=== PATIENT | female | born 1950 | race African-American/Black ===

== ENCOUNTER 2017-06-24 14:35 | Emergency (ER) | payer MEDICARE, MEDICAID | END 2017-06-24 16:23 | disposition left against medical advice (07) | LOC: ERS 14:35 | DX: Z53.21 Procedure and treatment not carried out due to patient leaving prior to being seen by health care provider (principal) ==

== ENCOUNTER 2017-08-07 12:22 | Outpatient (CLI) | payer MEDICARE, MEDICAID ==
--- NOTE | 2017-08-07 15:17 | CT ---
NONCONTRAST CT THORAX: Date: 08/07/17 HISTORY: Abnormal lung henriquez on prior imaging. COMPARISON: CT pulmonary lung scan on 04/29/16. FINDINGS: There are mild emphysematous changes again seen within the upper lobes, greater on the right. Calcifi ed granuloma is again present in the right upper lobe. No discrete pulmonary nodule or mass is seen. Vascular calcifications are again seen in the coronary arteries, as well as involving the thoracic ao rta. There is limited evaluation of the mediastinal structures and vasculature due to lack of intravenous contrast, but no definite enlarged lymph nodes are appreciated. There is suggestion of slight pericar gladis thickening versus pericardial fluid. There has been no interval change when compared to the prior exam. Remote right-sided rib fractures a re seen. IMPRESSION: 1. No pulmonary nodule or mass is seen in the lungs bilaterally. 2. Mild COPD. 3. Vascular calcifications in the coronary arteries and thoracic aorta, also seen on prior exam. POS: [facility]
== END 2017-08-07 12:23 | disposition home or self-care (01) ==
LOC: CT 12:22
PROVIDERS: ATTEND Family Medicine
DX: R91.8 Other nonspecific abnormal finding of lung field (principal); I25.10 Atherosclerotic heart disease of native coronary artery without angina pectoris; I70.0 Atherosclerosis of aorta
CPT/HCPCS: 71250

== ENCOUNTER 2017-09-14 10:17 | Outpatient (CLI) | payer MEDICARE, MEDICAID ==
[2017-09-14] MEDS ORDERED: Iopamidol 370 76% 100 ML VIAL ONE (13:12)
--- NOTE | 2017-09-14 14:18 | CT ---
CTA OF THE THORAX UTILIZING IV CONTRAST AND 3D REFORMATTED IMAGING: Date: 09/14/17 INDICATION: Concern for thoracic aortic aneurysm. COMPARISON: Prior CT pulmonary lung scan dated 04/29/16. FINDINGS: There is mild ectasia involving the ascending aorta measuring up to 3.4 cm, which is stable to the pr ior exam. The aortic arch measures 2.9 cm. The descending thoracic aorta at the level of the right ma in pulmonary artery is stable, measuring 2.8 cm. The right main pulmonary artery is prominent, measur ing 2.4 cm. The left main pulmonary artery is prominent, measuring 2.6 cm. There is scattered emphysema. There is calcified granuloma within the right upper lobe. There are cor onary artery thoracic aortic calcifications. There are small cysts involving the liver and spleen. No definite acute osseous abnormality is evident. There is scattered degenerative osteoarthritic koo ge. IMPRESSION: 1. Ectasia of the thoracic aorta without evidence of overt aneurysm, dissection, or occlusion. 2. Enlargement of the main pulmonary arteries can reflect underlying secondary pulmonary artery hype rtension which can be seen in patients with emphysema. 3. Hepatic and renal cysts. POS: [facility]
== END 2017-09-14 10:18 | disposition home or self-care (01) ==
LOC: CT 10:17
PROVIDERS: ATTEND Family Medicine
DX: I71.2 Thoracic aortic aneurysm, without rupture (principal); F17.200 Nicotine dependence, unspecified, uncomplicated; I10 Essential (primary) hypertension; I77.810 Thoracic aortic ectasia; I77.89 Other specified disorders of arteries and arterioles; N28.1 Cyst of kidney, acquired; K76.89 Other specified diseases of liver
CPT/HCPCS: 71275; 82565

== ENCOUNTER 2017-10-26 09:56 | Outpatient (CLI) | payer MEDICARE, MEDICAID ==
[~2017-10-26 09:56] MED LIST: ISOVUE-370 76%-LOCM 1 ML ONE
== END 2017-10-26 09:57 | disposition home or self-care (01) ==
LOC: BICCT 09:56
PROVIDERS: ATTEND Family Medicine
DX: I71.2 Thoracic aortic aneurysm, without rupture (principal); I10 Essential (primary) hypertension; F17.200 Nicotine dependence, unspecified, uncomplicated; I77.810 Thoracic aortic ectasia; J43.9 Emphysema, unspecified
CPT/HCPCS: 71275

== ENCOUNTER 2018-01-04 09:26 | Outpatient (CLI) | payer MEDICARE, MEDICAID | END 2018-01-04 09:27 | disposition home or self-care (01) | LOC: BICMAMMO 09:26 | PROVIDERS: ATTEND Family Medicine | DX: Z12.31 Encounter for screening mammogram for malignant neoplasm of breast (principal) | CPT/HCPCS: 77063; 77067 ==

== ENCOUNTER 2018-02-01 10:50 | Outpatient (CLI) | payer MEDICARE, MEDICAID ==
[2018-02-01 12:08] LABS: Hemoglobin 12.3 g/dL (12.0-16.0); Mean Corpuscular HGB CONC 32.9 g/dL (32.0-36.0); Mean Corpuscular Hemoglobin 28.9 pg (27.0-31.0); Mean Corpuscular Volume 87.8 fL (78.0-98.0); Mean Platelet Volume 7.4 fL (7.4-10.4); Platelet Count 260 thou/uL (130-400); RBC Distribution Width 13.2 % (11.5-14.5); Red Blood Cell (RBC) Count 4.28 mill/uL (4.20-5.40); White Blood Cell (WBC) Count 5.9 thou/uL (4.8-10.8)
[2018-02-01 12:13] LABS: PTT 38.2 SEC (22.9-36.1); Prothrombin Time 13.2 SEC (12.0-14.7)
[2018-02-01 12:49] LABS: ALT (SGPT) 11 U/L (8-55); AST (SGOT) 24 U/L (5-34); Alkaline Phosphatase 115 U/L (40-150); Anion Gap 12 mmol/L (10-20); BUN (Urea Nitrogen) 15 mg/dL (9.8-20.1); Bilirubin, Total 0.5 mg/dL (0.2-1.2); Calc. Creatinine Clearance 0 mL/min (70-130); Calcium 9.5 mg/dL (7.8-10.44); Carbon Dioxide 26 mmol/L (23-31); Chloride 102 mmol/L (98-107); Estimated GFR-MDRD 68; Globulin 3.5 g/dL (2.4-3.5); Glucose 95 mg/dL (80-115); Potassium 3.4 mmol/L (3.5-5.1); Protein, Total 7.5 g/dL (6.0-8.3); Sodium 137 mmol/L (136-145)
--- NOTE | 2018-02-02 07:00 | EKG ---
Test Reason : Blood Pressure : / mmHG Vent. Rate : 062 BPM Atrial Rate : 062 BPM P-R Int : 180 ms QRS Dur : 096 ms QT Int : 466 ms P-R-T Axes : 045 059 036 degrees QTc Int : 472 ms Normal sinus rhythm with sinus arrhythmia Septal infarct , age undetermined /Poor R wave progression Abnormal ECG No previous ECGs available Confirmed by SEABSTIAN GONZALES ([id number]) on 02/02/2018 6:59:59 AM Referred By: [facility]ANA Confirmed By:SEBASTIAN GONZAELS
== END 2018-02-01 10:51 | disposition home or self-care (01) ==
LOC: LABBT 10:50
PROVIDERS: ATTEND Internal Medicine Cardiovascular Disease
DX: Z01.818 Encounter for other preprocedural examination (principal); I25.119 Atherosclerotic heart disease of native coronary artery with unspecified angina pectoris
CPT/HCPCS: 80053; 85027; 85610; 85730; 93005; 93010

== ENCOUNTER 2018-02-05 05:45 | Day surgery (SDC) | payer MEDICARE, MEDICAID ==
[2018-02-01 11:14] VITALS: BMI 28.3
[2018-02-05 07:07] LABS: Cardiac Risk 3.5 (Less than 4.5)
[2018-02-05] MEDS ORDERED: Iopamidol 370 76% 50 ML VIAL FS ONE (08:20)
[2018-02-05] MEDS ORDERED: Iopamidol 370 76% 100 ML VIAL ONE (08:20)
[2018-02-05] MEDS ORDERED: Midazolam HCl 2 mg/2 ml Vial ONE (08:32)
[2018-02-05] MEDS ORDERED: Fentanyl 100 MCG/2 ML VIAL ONE ×2 (08:32→11:29)
[2018-02-05] MEDS ORDERED: Nitroglycerin 100MG/250ML BOT 0 ML ONE (08:52)
[2018-02-05] MEDS ORDERED: Heparin 10,000 UNITS/1 ML VIAL ONE (08:52)
[2018-02-05] MEDS ORDERED: hydrALAZINE 20 MG/ML VIAL ONE ×2 (09:14→12:06)
[2018-02-05] MEDS ORDERED: Clopidogrel Bisulfate 300 MG TAB ONE (09:15)
[2018-02-05] MEDS ORDERED: Fentanyl 100 MCG/2 ML VIAL SLOW IVP SCH (11:30)
[2018-02-05] MEDS ORDERED: Benzocaine 20% Spray 60 ML CAN ONE (12:06)
[2018-02-05] MEDS ORDERED: hydrALAZINE 20 MG/ML VIAL SLOW IVP SCH (12:15)
[2018-02-05] MEDS ORDERED: Lisinopril 10 MG TAB ONE (14:00)
[2018-02-05] MEDS ORDERED: Lisinopril 10 MG TAB PO SCH (14:15)
== END 2018-02-05 16:34 | disposition home or self-care (01) ==
LOC: CCL 05:45
PROVIDERS: ATTEND Internal Medicine Cardiovascular Disease
PROC: 027034Z Dilation of Coronary Artery, One Artery with Drug-eluting Intraluminal Device, Percutaneous Approach (ICD-10-PCS; principal; 2018-02-05)
PROC: 4A023N7 Measurement of Cardiac Sampling and Pressure, Left Heart, Percutaneous Approach (ICD-10-PCS; 2018-02-05)
PROC: B2111ZZ Fluoroscopy of Multiple Coronary Arteries using Low Osmolar Contrast (ICD-10-PCS; 2018-02-05)
DX: I25.10 Atherosclerotic heart disease of native coronary artery without angina pectoris (principal); I10 Essential (primary) hypertension; Z79.02 Long term (current) use of antithrombotics/antiplatelets; Z79.82 Long term (current) use of aspirin; Z79.899 Other long term (current) drug therapy
CPT/HCPCS: 80061; 85347 ×2; 93005; 93454; C1769 ×2; C1874; C9600; 92928; 93010; 99152; 99153; J0360; J1644; J2250; J3010

== ENCOUNTER 2019-01-05 09:43 | Outpatient (CLI) | payer MEDICARE, OTHER ==
--- NOTE | 2019-01-05 10:26 | MMO ---
Bilateral MAMMO Bilat Screen [facility]. CLINICAL HISTORY: Patient is 68 years old and is seen for screening. The patient has no family history of breast cancer. The patient has no personal history of cancer. VIEWS: The views performed were: bilateral craniocaudal with tomosynthesis and bilateral mediolateral oblique with tomosynthesis. FILMS COMPARED: The present examination has been compared to prior imaging studies performed at [facility] on 10/30/2009, 03/01/2013, 01/01/2017 and 01/04/2018. MAMMOGRAM FINDINGS: There are scattered fibroglandular densities. There are no suspicious masses, suspicious calcifications, or new areas of architectural distortion. IMPRESSION: THERE IS NO MAMMOGRAPHIC EVIDENCE OF MALIGNANCY. A ROUTINE FOLLOW-UP MAMMOGRAM IN 1 YEAR IS RECOMMENDED. THE RESULTS OF THIS EXAM WERE SENT TO THE PATIENT. ACR BI-RADS Category 1 - Negative MAMMOGRAPHY NOTE: 1. A negative mammogram report should not delay a biopsy if a dominant of clinically suspicious mass is present. 2. Approximately 10% to 15% of breast cancers are not detected by mammography. 3. Adenosis and dense breasts may obscure an underlying neoplasm. Reported by: ADRIÁN SMYTH MD Electonically Signed: [id number]
== END 2019-01-05 09:44 | disposition home or self-care (01) ==
LOC: BICMAMMO 09:43
PROVIDERS: ATTEND Family Medicine
DX: Z12.31 Encounter for screening mammogram for malignant neoplasm of breast (principal)
CPT/HCPCS: 77063; 77067

== ENCOUNTER 2020-01-09 09:49 | Outpatient (CLI) | payer MEDICARE, MEDICAID ==
--- NOTE | 2020-01-09 10:25 | MMO ---
Bilateral MAMMO Bilat Screen [facility]. CLINICAL HISTORY: Patient is 69 years old and is seen for screening. The patient has no family history of breast cancer. The patient has no personal history of cancer. VIEWS: The views performed were: bilateral craniocaudal with tomosynthesis and bilateral mediolateral oblique with tomosynthesis. FILMS COMPARED: The present examination has been compared to prior imaging studies performed at [facility] on 03/01/2013, 01/01/2017, 01/04/2018 and 01/05/2019. This study has been interpreted with the assistance of computer-aided detection. MAMMOGRAM FINDINGS: There are scattered fibroglandular densities. There are no suspicious masses, suspicious calcifications, or new areas of architectural distortion. IMPRESSION: THERE IS NO MAMMOGRAPHIC EVIDENCE OF MALIGNANCY. A ROUTINE FOLLOW-UP MAMMOGRAM IN 1 YEAR IS RECOMMENDED. THE RESULTS OF THIS EXAM WERE SENT TO THE PATIENT. ACR BI-RADS Category 1 - Negative MAMMOGRAPHY NOTE: 1. A negative mammogram report should not delay a biopsy if a dominant of clinically suspicious mass is present. 2. Approximately 10% to 15% of breast cancers are not detected by mammography. 3. Adenosis and dense breasts may obscure an underlying neoplasm. Reported by: DONALDO BOOTHE MD Electonically Signed: [id number]
== END 2020-01-09 09:50 | disposition home or self-care (01) ==
LOC: BICMAMMO 09:49
PROVIDERS: ATTEND Student in an Organized Health Care Education/Training Program
DX: Z12.31 Encounter for screening mammogram for malignant neoplasm of breast (principal)
CPT/HCPCS: 77063; 77067

== ENCOUNTER 2020-06-26 08:19 | Outpatient (CLI) | payer MEDICARE, MEDICAID ==
--- NOTE | 2020-06-26 08:56 | ULT ---
ULTRASOUND RETROPERITONEUM LIMITED: (ABDOMINAL AORTA) DATE: 06/26/2020 HISTORY: 70-year-old female with ICD-10: "F 17.210 nicotine dependence, cigarettes, uncomplicated" presents fo r abdominal aortic aneurysm screening Z 13.6 FINDINGS: There is atherosclerotic calcified plaque throughout the abdominal aorta which has irregular margins. The (outer wall to outer wall) caliber of the abdominal aorta is as follows (in cm): Proximal: 3.3. Mid: 2.5 Distal: 3.1. IMPRESSION: 1) evidence for mild fusiform abdominal aortic aneurysm. 2) at least moderate atherosclerosis of abdominal aorta
--- NOTE | 2020-06-26 09:17 | BD ---
EXAM: Bone densitometry using DEXA HISTORY: 70 yo female. Screening for postmenopausal osteoporosis FINDINGS: L1--bone mineral density 0.750 g/sq cm; T score -2.2 ; Z score -1.1 L2--bone mineral density 0.810 g/sq cm; T score -2.0 ; Z score -0.7 L3--bone mineral density 0.837 g/sq cm; T score -2.2 ; Z score -0.9 L4--bone mineral density 0.850 g/sq cm; T score -1.9 ; Z score -0.6 Total L1-L4--bone mineral density 0.812 g/sq cm; T score -2.1 ; Z score -0.9 Left femoral neck--bone mineral density0.611; T score -2.1 ; Z score -1.0 Total proximal left femur--bone mineral density 0.830; T score -0.9 ; Z score -0.2 The 10 year fracture risk for a major osteoporotic fracture is 9.3% and for a hip fracture is 2.6%. IMPRESSION: Osteopenia
--- NOTE | 2020-06-26 09:21 | CT ---
EXAM: CT chest without contrast PROVIDED CLINICAL HISTORY: Personal history of nicotine dependence COMPARISON: 08/07/2017 FINDINGS: The heart, pericardium and great vessels are suboptimally evaluated in the absence of IV contrast mat erial but demonstrate a stable unenhanced CT appearance. Vascular calcification including coronary calcium is demonstrated. Emphysematous changes are again seen. There is no focal concerning parenchymal opacity. There is no evidence for thoracic lymph node enlargement, with limitations due to lack of IV contrast . The airway appears patent and of normal caliber. No pleural fluid or pneumothorax evident. The visualized portions of the upper abdomen demonstrate a stable unenhanced CT appearance. The osseous structures demonstrate no concerning lytic or blastic lesions. IMPRESSION: Lung RADS category 1-negative. Continue annual screening.
== END 2020-06-26 08:20 | disposition home or self-care (01) ==
LOC: BICULT 08:19
PROVIDERS: ATTEND Student in an Organized Health Care Education/Training Program
DX: Z13.820 Encounter for screening for osteoporosis (principal); Z12.2 Encounter for screening for malignant neoplasm of respiratory organs; F17.210 Nicotine dependence, cigarettes, uncomplicated; M85.89 Other specified disorders of bone density and structure, multiple sites; I71.4 Abdominal aortic aneurysm, without rupture; I70.0 Atherosclerosis of aorta
CPT/HCPCS: 76775; 77080; G0297

== ENCOUNTER 2021-01-10 12:13 | Outpatient (CLI) | payer MEDICARE, OTHER | END 2021-01-10 12:14 | disposition home or self-care (01) | LOC: BICMAMMO 12:13 | PROVIDERS: ATTEND Student in an Organized Health Care Education/Training Program | DX: Z12.31 Encounter for screening mammogram for malignant neoplasm of breast (principal) | CPT/HCPCS: 77063; 77067 ==

== ENCOUNTER 2022-01-06 14:36 | Outpatient (CLI) | payer MEDICARE, OTHER | END 2022-01-06 14:37 | disposition home or self-care (01) | LOC: BICULT 14:36 | PROVIDERS: ATTEND Internal Medicine Nephrology | DX: N18.30 Chronic kidney disease, stage 3 unspecified (principal) | CPT/HCPCS: 76770 ==

== ENCOUNTER 2023-06-01 12:34 | Outpatient (CLI) | payer OTHER, MEDICAID | END 2023-06-01 12:35 | disposition home or self-care (01) | LOC: BICCT 12:34 | PROVIDERS: ATTEND Internal Medicine Nephrology | DX: N18.30 Chronic kidney disease, stage 3 unspecified (principal); I72.3 Aneurysm of iliac artery | CPT/HCPCS: 74176 ==

== ENCOUNTER 2025-05-01 09:15 | Outpatient (CLI) | payer OTHER | END 2025-05-01 09:16 | disposition home or self-care (01) | LOC: BICMAMMO 09:15 | PROVIDERS: ATTEND Family Medicine | DX: Z12.2 Encounter for screening for malignant neoplasm of respiratory organs (principal); F17.210 Nicotine dependence, cigarettes, uncomplicated; Z78.0 Asymptomatic menopausal state; M81.0 Age-related osteoporosis without current pathological fracture | CPT/HCPCS: 71271; 77080 ==

== ENCOUNTER 2025-06-08 10:11 | Outpatient (CLI) | payer OTHER | END 2025-06-08 10:12 | disposition home or self-care (01) | LOC: BICMAMMO 10:11 | PROVIDERS: ATTEND Family Medicine | DX: Z12.31 Encounter for screening mammogram for malignant neoplasm of breast (principal) | CPT/HCPCS: 77063; 77067 ==